=== PATIENT | female | born 1945 | race Caucasian/White ===

== ENCOUNTER 2024-01-11 09:41 | Emergency (ER) | payer OTHER ==
[~2024-01-11] VITALS: Ht 157.5 cm; Wt 90.1 kg
[2024-01-11 10:00] VITALS: PULSE 88; RESP 20; O2SAT 95
[2024-01-11] MEDS: SODIUM CHLORIDE 0.9% 1,000 ML IV ONE (10:43)
[2024-01-11 11:11] LABS: Basophils # (auto) 0 10 ^3/uL (0-0.2); Basophils % (auto) 0.6 % (0.0-2.0); Eosinophils # (auto) 0.1 10 ^3/uL (0-0.8); Eosinophils % (auto) 1.3 % (0.0-7.0); Hemoglobin 15.4 g/dL (12.2-16.2); Lymphocytes # (auto) 1.7 10 ^3/uL (0.4-5.4); Lymphocytes % (auto) 21.6 % (10.0-50.0); Mean Corpuscular Hemoglobin 32.1 pg (28.0-32.0); Mean Corpuscular Hgb Conc. 34.1 g/dL (32.0-36.0); Mean Corpuscular Volume 94.1 fL (80.0-100.0); Monocytes # (auto) 0.6 10 ^3/uL (0-1.3); Monocytes % (auto) 7.9 % (0.0-12.0); Neutrophils # (auto) 5.4 10 ^3/uL (1.6-8.6); Neutrophils % (auto) 68.6 % (37.0-80.0); Nucleated Red Blood Cells % 0.1 %; Platelet Count (auto) 297 10^3/uL (140-450); Red Blood Cells 4.78 10^6/uL (4.0-5.20); Red Cell Distribution Width 13.8 % (11.8-14.3); White Blood Cell 7.9 10^3/uL (4.4-10.8)
[2024-01-11 11:19] LABS: Urine Bacteria FEW /hpf (None Seen); Urine Blood TRACE /uL (Negative); Urine Clarity Turbid (Clear); Urine Color Yellow (Yellow); Urine Hyaline Cast MANY /lpf (0 - 2); Urine Mucus FEW (None Seen); Urine Protein, UAD 2+ (Negative); Urine Specific Gravity 1.031 (1.001-1.035); Urine Urobilinogen Normal (Negative); Urine WBC 8 /hpf (0 - 5); Urine pH 5.5 (5.0-9.0)
[2024-01-11 11:24] LABS: Alanine Aminotransferase 34 U/L (7-40); Albumin 4.3 g/dL (3.2-4.8); Alkaline Phosphatase 119 U/L (46-116); Anion Gap 7 (5-15); Aspartate Aminotransferase 17 U/L (13-40); BUN/Creatinine Ratio 12.5 (10.0-20.0); Blood Urea Nitrogen 12 mg/dL (9-23); Carbon Dioxide 24 mmol/L (20-30); Chloride 108 mmol/L (98-107); Glucose 125 mg/dL (74-106); Magnesium 1.9 mg/dL (1.6-2.6); Sodium 139 mmol/L (136-145)
[2024-01-11 11:25] LABS: Bilirubin, Total 0.4 mg/dL (0.2-1.0); Total Protein 6.6 g/dL (5.7-8.2)
[2024-01-11 11:28] LABS: INR 1.08 (0.9-1.15); Partial Thromboplastin Time 29.9 SEC (24.5-34.5); Prothrombin Time 11.4 sec (9.3-11.8)
[2024-01-11] MEDS: cefTRIAXone 1GM/50ML D5W 50 ML IV ONE (14:35)
[2024-01-11] MEDS ORDERED: NITR-87 PO (15:31)
[2024-01-11 15:43] VITALS: BP 128/52; PULSE 65; RESP 12; O2SAT 95
== END 2024-01-11 15:50 | disposition home or self-care (01) ==
LOC: ER 09:41
DX: I48.0 Paroxysmal atrial fibrillation (principal); N39.0 Urinary tract infection, site not specified; Z90.49 Acquired absence of other specified parts of digestive tract; Z90.710 Acquired absence of both cervix and uterus; Z88.0 Allergy status to penicillin; Z88.2 Allergy status to sulfonamides
CPT/HCPCS: 36415; 71046; 80053; 81001; 83735; 84443; 84484; 85025; 85379; 85610; 85730; 93005; 96361; 96365; 99285; J0696

== ENCOUNTER 2025-02-08 10:15 | Emergency (ER) | payer OTHER ==
[~2025-02-08] VITALS: Ht 157.5 cm; Wt 92.7 kg
[~2025-02-08 10:15] MED LIST: NITR-87 PO
--- NOTE | 2025-02-08 10:23 | ED.PDOC ---
HPI Comments 79-year-old female presents here with palpitations. She states she has a known history of atrial fibrillation for which he takes amiodarone and metoprolol. She states however normally it is rate controlled and this morning it was in the 130s. She states it was 135-138 to 8:00 a.m. this morning. She is currently on Eliquis b.i.d.. She states she has been compliant with her medications. Patient states she just feels very shaky and some dizziness. Denies any chest discomfort. Chief Complaint: Palpitations Time Seen by MD: 11:10 Primary Care Provider: Medhat Reviewed Notes: Nurses Notes, Medications, Allergies Allergies: Coded Allergies: Penicillins (Verified Allergy, Severe, 01/11/24) Sulfa Antibiotics (Verified Allergy, Severe, 01/11/24) Uncoded Allergies: CODE (Adverse Reaction, Unknown, Vomiting, 01/11/24) Home Meds Active Scripts Nitrofurantoin Monohydrate Mac (Macrobid) 100 Mg Cap, 100 MG PO BID for 10 Days, #20 CAP Prov:ASHLEY FORBES MD 01/11/24 Information Source: Patient Mode of Arrival: Ambulatory Severity: Moderate Timing: Hours Duration: Since onset, Hours Prehospital treatment: None Location: Substernal Radiation: No Radiation Quality: Aching Onset: At Rest Cardiac Risk Factors: Other (AFIB) PE Risk Factors: None History of: None Associated Signs and Symptoms: None Past Medical History PAST MEDICAL HISTORY: AFIB Surgical History: Cholecystectomy, Hysterectomy [employer]IST History: No Pertinent [employer]IST History Family History Family History: Reviewed,noncontributory to illness, Unknown Social History Smoker: Non-Smoker Alcohol: Denies ETOH Use Drugs: Denies Drug Use Lives In: Home Constitutional: denies: chills, diaphoresis, fatigue, fever, malaise, sweats, weakness, others EENTM: denies: blurred vision, double vision, ear bleeding, ear discharge, ear drainage, ear pain, ear ringing, eye pain, eye redness, hearing loss, mouth pain, mouth swelling, nasal discharge, nose bleeding, nose congestion, nose pain, photophobia, tearing, throat pain, throat swelling, voice changes, others Respiratory: denies: cough, hemoptysis, orthopnea, SOB at rest, shortness of breath, SOB with excertion, stridor, wheezing, others Cardiovascular: reports: chest pain, palpitations; denies: dizzy spells, diaphoresis, Dyspnea on exertion, edema, irregular heart beat, left arm pain, lightheadedness, PND, syncope, others Gastrointestinal: denies: abdomen distended, abdominal pain, blood streaked bowels, constipated, diarrhea, dysphagia, difficulty swallowing, hematemesis, melena, nausea, poor appetite, poor fluid intake, rectal bleeding, rectal pain, vomiting, others Genitourinary: denies: abnormal vagina bleeding, burning, dyspareunia, dysuria, flank pain, frequency, hematuria, incontinence, pain, , vagina discharge, urgency, others Neurological: denies: dizziness, fainting, headache, left sided numbness, left sided weakness, numbness, paresthesia, pre-existing deficit, right sided numbness, right sided weakness, seizure, speech problems, tingling, tremors, weakness, others Musculoskeletal: denies: back pain, gout, joint pain, joint swelling, muscle pain, muscle stiffness, neck pain, others Integumetry: denies: bruises, change in color, change in hair/nails, dryness, laceration, lesions, lumps, rash, wounds, others Allergic/Immunocompromised: denies: Difficulty Healing, Frequent Infections, Hives, Itching, others Hematologic/Lymphatic: denies: anemia, blood clots, easy bleeding, easy bruising, swollen glands, others Endocrine: denies: excessive hunger, excessive sweating, excessive thirst, excessive urination, flushing, intolerance to cold, intolerance to heat, unexplained weight gain, unexplained weight loss, others Psychiatric: denies: anxiety, bipolar disorder, depression, hopeless, panic disorder, schizophrenia, sleepless, suicidal, others All Other Systems: Reviewed and Negative Physical Exam General Appearance: No Apparent Distress, Normal HEENT: Normal ENT Inspection, Pharynx Normal, TMs Normal Neck: Full Range of Motion, Non-Tender, Normal, Normal Inspection Respiratory: Chest Non-Tender, Lungs Clear, No Accessory Muscle Use, No Respiratory Distress, Normal Breath Sounds Cardiovascular: No Edema, No Murmur, No Gallop, Normal Peripheral Pulses, Tachycardia Breast Exam: Deferred Gastrointestinal: No Organomegaly, Non Tender, No Pulsatile Mass, Normal Bowel Sounds, Soft Genitalia: Deferred Pelvic: Deferred Rectal: Deferred Extremities: No calf tenderness, Normal capillary refill, Normal inspection, Normal range of motion, Non-tender, No pedal edema Musculoskeletal : Apperance: Normal Neurologic: Alert, cross tie cutter II-XII nml as Tested, No Motor Deficits, Normal Affect, Normal Mood, No Sensory Deficits Cerebellar Function: Normal Reflexes: Normal Skin: Dry, Normal Color, Warm Lymphatic: No Adenopathy EKG EKG #1: Pulse Rate (adult): 108 [place]: Normal Cardiac Rhythm: Aflutter Block: None Hypertrophy: None ST: Normal Comments Rate of 108 atrial flutter prolonged QTC at 498, no significant ST changes EKG #2: Comments Rate of 62 sinus rhythm T-wave flattening in 3 V2, V3, V4, EKG #3: Comments 13 13 EKG 3. Rate of 61 sinus rhythm no significant ST changes. Was a procedure done? Was a procedure done?: No CP Differential Dx Differential Diagnosis: A-fib, A-Flutter, Angina, PSVT, Pulmonary Embolus Differential Diagnosis: N/A Differential Diagnosis: Other (CHEST PAIN) X-Ray, Labs, Meds, VS Vital Signs Date Time Temp Pulse Resp B/P (MAP) Pulse Ox O2 Delivery O2 Flow Rate FiO2 02/08/25 11:15 108 02/08/25 10:19 98.3 78 18 148/72 97 98.3 02/08/25 10:17 108 Lab Test 02/08/25 11:45 02/08/25 10:35 Range/Units Troponin I High Sensitivity 12 12 </=34 ng/L White Blood Count 7.0 4.4-10.8 10^3/uL Red Blood Count 4.78 4.0-5.20 10^6/uL Hemoglobin 15.0 12.2-16.2 g/dL Hematocrit 44.6 36.0-46.0 % Mean Corpuscular Volume 93.4 80.0-100.0 fL Mean Corpuscular Hemoglobin 31.3 28.0-32.0 pg Mean Corpuscular Hemoglobin Concent 33.5 32.0-36.0 g/dL Red Cell Distribution Width 13.7 11.8-14.3 % Platelet Count 293 140-450 10^3/uL Mean Platelet Volume 8.2 6.9-10.8 fL Neutrophils (%) (Auto) 70.5 37.0-80.0 % Lymphocytes (%) (Auto) 21.6 10.0-50.0 % Monocytes (%) (Auto) 6.5 0.0-12.0 % Eosinophils (%) (Auto) 1.0 0.0-7.0 % Basophils (%) (Auto) 0.4 0.0-2.0 % Neutrophils # (Auto) 4.9 1.6-8.6 10 ^3/uL Lymphocytes # (Auto) 1.5 0.4-5.4 10 ^3/uL Monocytes # (Auto) 0.5 0-1.3 10 ^3/uL Eosinophils # (Auto) 0.1 0-0.8 10 ^3/uL Basophils # (Auto) 0 0-0.2 10 ^3/uL Nucleated Red Blood Cells 0.0 % Sodium Level 141 136-145 mmol/L Potassium Level 4.5 3.5-5.1 mmol/L Chloride Level 106 98-107 mmol/L Carbon Dioxide Level 24 20-31 mmol/L Anion Gap 11 5-15 Blood Urea Nitrogen 11 9-23 mg/dL Creatinine 0.98 0.550-1.02 mg/dL Glomerular Filtration Rate Calc 59 >90 mL/min BUN/Creatinine Ratio 11.2 10.0-20.0 Serum Glucose 142 H 74-106 mg/dL Calcium Level 10.2 8.7-10.4 mg/dL Current Medications Medications (Trade) Dose Ordered Sig/Dread Route Start Time Stop Time Status Last Admin Aspirin 162 mg ONCE ONCE PO 02/08/25 11:00 02/08/25 11:01 DC 02/08/25 13:07 [place] [address] Ph: [phone] DIAGNOSTIC IMAGING Diagnostic Imaging Report : [id number] Signed PATIENT: FADUMO PENAACCT: [id number] UNIT: [id number] : 1945 LOC: ER ROOM / BED: / AGE / SEX: 79 / F ADM STATUS: REG ER SERVICE [id number] ORDERING PHYSICIAN: MARTINE EDWARDS MD PROCEDURE(s): CXR2 - CHEST TWO VIEWS ROUTINE REASON: Chest pain ORDER NUMBER(s): [id number], ACCESSION NUMBER(s): [id number] CHEST RADIOGRAPH Indication: Chest pain Technique: Frontal and lateral view of the chest was obtained Comparison: XY CHEST TWO VIEWS ROUTINE on DOS: 01/11/24 FINDINGS: Lines and Tubes: None Lungs: Left basilar subsegmental atelectasis Pleura: No effusion. No pneumothorax. Cardiomediastinal contours: Unremarkable Bones: Unremarkable IMPRESSION: Left basilar subsegmental atelectasis. ATED BY: JULIO C HARTMANN MD DICTATED DATE/TIME: 02/08/251200 SIGNED BY: JULIO C HARTMANN MD SIGNED DATE/TIME: 02/08/251200 79-year-old female presents here in AFib with RVR. She has a known history of atrial fibrillation for which she takes amiodarone and metoprolol and is currently on Eliquis. I was called to see the patient immediately upon her arrival to the ER given her heart rate. First EKG demonstrates a heart rate of 108. At this time given we are at 1:08 a.m., no additional treatment was given by myself. However she was closely monitored. At this time CBC BMP troponin and multiple EKGs has been ordered. I have reviewed them all. Her CBC BMP and troponin have returned negative. First EKG demonstrated that she was in a flutter. Second EKG demonstrated that she has now converted to sinus rhythm however she does have some T-wave flattening in her lateral leads which is new. At this time patient does not want to be admitted. She states the palpitations and dizziness have now resolved. EKG 3. No longer has T-wave flattening, potentially air on 2. At this time patient feels well and prefers to go home. I advised her if any point her symptoms worsen to return back to the ER. Time of 1ST Reevaluation: 11:40 Reevaluation 1ST: Unchanged Patient Education/Counseling: Diagnosis, Treatment, Prognosis Family Education/Counseling: No Family Present SEPSIS Sepsis Screen Physician Orders Electrocardigram (02/08/25 10:17) Troponin-I Hs (02/08/25 13:17) Electrocardigram (02/08/25 11:17) Electrocardigram (02/08/25 13:17) Chest Two Views Routine (02/08/25 10:54) Vital Signs Date Time Temp Pulse Resp B/P (MAP) Pulse Ox O2 Delivery O2 Flow Rate FiO2 02/08/25 11:15 108 02/08/25 10:19 98.3 78 18 148/72 97 98.3 02/08/25 10:17 108 Laboratory Tests Test 02/08/25 10:35 White Blood Count 7.0 10^3/uL (4.4-10.8) Medications Medications Dose Ordered Sig/Dread Route Start Time Stop Time Status Last Admin Dose Admin Aspirin 162 mg ONCE ONCE PO 02/08/25 11:00 02/08/25 11:01 DC 02/08/25 13:07 Departure 1 Departure Time of Disposition: 12:51 Impression: Primary Impression: Paroxysmal atrial fibrillation Disposition: HOME / SELF CARE / HOMELESS Condition: Fair Written Prescriptions Follow up with the primary care physician in 2-3 days. Return to the ER if symptoms worsen or persist. Discharged With: Self Critical Care Note Critical Care Time?: Yes (35 min-critical care time only) Critical care comment: Concern for immediate cardiac deterioration. I was asked to see the patient immediately upon the arrival has a were in atrial fibrillation. Multiple re- evaluations of the patient,. Multiple EKG evaluations. Time spent reviewing labs. Stability Stability form required: No Heart Score Heart Score: Heart Score Response (Comments) Value History Moderate Suspicious 1 EKG Normal 0 Age >65 2 Risk Factors 1 or 2 risk factors 1 Troponin Normal limit 0 Total 4 I personally scribed for MARTINE EDWARDS MD ([email or web address]) on 02/08/25 at 10:23. Electronically submitted by Min Amaya ([employer]). I personally scribed for MARTINE EDWARDS MD ([email or web address]) on 02/08/25 at 11:15. Electronically submitted by Min Amaya ([employer]). I personally scribed for MARTINE EDWARDS MD ([email or web address]) on 02/08/25 at 12:17. Electronically submitted by Min Amaya ([employer]). MARTINE EDWARDS MD Feb 08, 2025 10:23
[2025-02-08 11:07] LABS: Hematocrit 44.6 % (36.0-46.0); Hemoglobin 15.0 g/dL (12.2-16.2); Mean Corpuscular Hemoglobin 31.3 pg (28.0-32.0); Mean Corpuscular Volume 93.4 fL (80.0-100.0); Nucleated Red Blood Cells % 0.0 %
[2025-02-08 11:12] LABS: Chloride 106 mmol/L (98-107); Potassium 4.5 mmol/L (3.5-5.1); Sodium 141 mmol/L (136-145)
[2025-02-08 11:13] LABS: Anion Gap 11 (5-15); Carbon Dioxide 24 mmol/L (20-31)
[2025-02-08 11:14] LABS: Calcium 10.2 mg/dL (8.7-10.4)
[2025-02-08 11:18] LABS: BUN/Creatinine Ratio 11.2 (10.0-20.0); Blood Urea Nitrogen 11 mg/dL (9-23)
[2025-02-08 11:23] LABS: Glucose 142 mg/dL (74-106)
--- NOTE | 2025-02-08 12:03 | DVH ---
CHEST RADIOGRAPH Indication: Chest pain Technique: Frontal and lateral view of the chest was obtained Comparison: XY CHEST TWO VIEWS ROUTINE on DOS: 01/11/24 FINDINGS: Lines and Tubes: None Lungs: Left basilar subsegmental atelectasis Pleura: No effusion. No pneumothorax. Cardiomediastinal contours: Unremarkable Bones: Unremarkable IMPRESSION: Left basilar subsegmental atelectasis.
[2025-02-08 13:33] VITALS: BP 142/76; PULSE 60; RESP 18; TEMP 98.1; O2SAT 98
--- NOTE | 2025-02-13 13:14 | ECG ---
[facility] Test Date: 2025-02-08 Test Time: 10:17:05 Pat Name: FADUMO PENA Department: ED Room: Gender: F Social Economist: rahel : 1945 Requested By: MARTINE EDWARDS Order Number: [id number] Reading MD: Measurements Intervals [place] Rate: 108 P: 0 CA: 0 QRS: 262 QRSD: 93 T: 56 QT: 371 QTc: 498 Interpretive Statements Atrial flutter Left anterior fascicular block Low voltage, precordial leads Probable right ventricular hypertrophy Please click the below link to view image of tracing.
--- NOTE | 2025-02-14 06:23 | ECG ---
[facility] Test Date: 2025-02-08 Test Time: 11:22:17 Pat Name: FADUMO PENA Department: ED Room: Gender: F Deputy Clerk Of Court: rahel : 1945 Requested By: MARTINE EDWARDS Order Number: [id number] Reading MD: Measurements Intervals [place] Rate: 62 P: 13 [place]: 142 QRS: 234 QRSD: 92 T: 23 QT: 423 QTc: 430 Interpretive Statements Sinus rhythm Low voltage, precordial leads Probable right ventricular hypertrophy Borderline T abnormalities, anterior leads Please click the below link to view image of tracing.
--- NOTE | 2025-02-14 06:23 | ECG ---
[facility] Test Date: 2025-02-08 Test Time: 13:13:38 Pat Name: FADUMO PENA Department: ED Room: Gender: F Call Center Specialist: rahel : 1945 Requested By: MARTINE EDWARDS Order Number: [id number] Reading MD: Measurements Intervals [place] Rate: 61 P: 22 [place]: 150 QRS: 251 QRSD: 96 T: 54 QT: 465 QTc: 469 Interpretive Statements Sinus rhythm Left anterior fascicular block Low voltage, precordial leads Consider anterior infarct Please click the below link to view image of tracing.
== END 2025-02-08 13:36 | disposition home or self-care (01) ==
LOC: ER 10:15
DX: I48.0 Paroxysmal atrial fibrillation (principal); Z90.710 Acquired absence of both cervix and uterus; Z90.49 Acquired absence of other specified parts of digestive tract; Z88.2 Allergy status to sulfonamides; Z88.0 Allergy status to penicillin; Z79.899 Other long term (current) drug therapy
CPT/HCPCS: 36415; 71046; 80048; 84484; 85025; 93005